=== PATIENT | female | born 1985 ===

== ENCOUNTER 2024-09-05 12:24 | Inpatient (IN) | payer OTHER ==
[~2024-09-05] VITALS: Ht 154.9 cm; Wt 75.4 kg
[2024-09-05 13:35] VITALS: BP 134/97
[2024-09-05] MEDS ORDERED: TRAZ100 PO (14:17)
[2024-09-05 14:25] VITALS: BP 134/97
[2024-09-05] MEDS ORDERED: Acetaminophen 325 MG TABLET PO PRN (14:25)
[2024-09-05] MEDS ORDERED: Melatonin 3 MG Tab PO PRN (14:25)
[2024-09-05] MEDS ORDERED: Polyethylene Glycol 3350 17 gm PO PRN (14:25)
[2024-09-05] MEDS ORDERED: Aluminum Hydroxide 320MG/5ML 473 ML PO PRN (14:25)
[2024-09-05] MEDS ORDERED: TraZODone HCl 50 MG Tab PO PRN (14:25)
[2024-09-05] MEDS ORDERED: Calcium Carbonate 500 MG Tab Chew PO PRN (14:30)
[2024-09-05] MEDS ORDERED: DiphenhydrAMINE HCl 50 MG/ML 1ML Vial IV PRN (14:30)
[2024-09-05] MEDS ORDERED: Haloperidol 5 MG Tab PO PRN (14:30)
[2024-09-05] MEDS ORDERED: FLU VACC TS2024-25(6MOS UP)/PF 45 MCG/0.5 ML SYRINGE IM SCH (14:30)
[2024-09-05] MEDS ORDERED: HydrOXYzine Pamoate 50 MG Cap PO PRN (14:30)
[2024-09-05] MEDS ORDERED: DiphenhydrAMINE HCl 50 MG Cap PO PRN (14:30)
[2024-09-05] MEDS ORDERED: Haloperidol Lactate Inj. 5 MG/ML Injection IM PRN (14:30)
[2024-09-05] MEDS ORDERED: Ibuprofen 600 MG Tab PO PRN (14:35)
[2024-09-05] MEDS ORDERED: OLANZapine ODT 10 MG Tab MM PRN (14:35)
[2024-09-05] MEDS ORDERED: LORazepam 2 MG Tab PO PRN (14:35)
[2024-09-05] MEDS ORDERED: Ondansetron 4 MG SoluTab MM PRN (14:35)
[2024-09-05] MEDS ORDERED: LORazepam 2 MG/ML 1ML Injection IM PRN (14:35)
[2024-09-05] MEDS ORDERED: Nicotine 21 MG PATCH TOP ONE (15:05)
--- NOTE | 2024-09-05 16:41 | NUR ---
ADMISSION NOTE PT ADMITTED FROM [facility] FOR SI/SOMATIC ISSUES. DURING ASSESSMENT THE PT HAD A DIFFICULT TIME VERBALIZING WHAT BROUGHT HER TO THE ED. PT DENIES SI AT ANY TIME BUT SAYS THAT SHE OVERALL HAS NOT FELT WELL AND HAS BEEN ANXIOUS/OVERWHELMED. PT VISITED THE ED IN [place] 5 TIMES PRIOR TO BEING ADMITTED. PT WAS TEARFUL DURING THE INTERVIEW AND WAS UNSURE OF MOST QUESTIONS. SHE IS UNSURE WHY SHE FEELS THE WAY SHE DOES AND SAYS THAT SHE IS "SCARED". SHE ENDORSED ABD PAIN BUT DID JUST START HER MENSES. PT ALSO ENDORSES GENERALIZED PAIN, CHILLS, AND OVERALL FEELINGS OF ANXIETY. THIS RN ASKED PT IF SHE USES ANY SUBSTANCES AND PT DENIED ANY CURRENT SUBSTANCE USE. PT UNSURE OF HOME MEDICATIONS AND HOME PHARMACY TO FAX MED LIST SO MEDICATION RECONCILATION CAN BE COMPLETED. PT ORIENTED THE UNIT AND HAS BEEN OUT ON THE UNIT SINCE SHE HAS ARRIVED. PT CONTINUES TO ENDORSE PAIN AND HAS BEEN TREATED WITH PRN'S X2 FOR PAIN.
[2024-09-05] MEDS ORDERED: Menthol 1 EA Adhesive Patch TOP PRN (20:50)
[2024-09-05] MEDS ORDERED: Methyl Salicylate/Menth/Camph 57 GM TUBE TOP PRN (21:15)
[2024-09-05 21:18] VITALS: BP 120/78
[2024-09-06] MEDS ORDERED: Multivitamins 1 Tab PO SCH (09:00)
[2024-09-06] MEDS ORDERED: Nicotine 21 MG PATCH TOP SCH (09:00)
[2024-09-06] MEDS ORDERED: METPHE10 PO (10:45)
[2024-09-06] MEDS ORDERED: ESTARYLLA 0.251 EACH PO (10:46)
[2024-09-06] MEDS ORDERED: Bentyl20 MG PO (10:47)
[2024-09-06] MEDS ORDERED: ONDA4ODT MM (10:48)
[2024-09-06 12:22] VITALS: BP 129/75
--- NOTE | 2024-09-06 14:03 | NUR ---
SEE HARD CHART FOR DOWNTIME CHARTING BETWEEN [phone].
[2024-09-06] MEDS ORDERED: Dicyclomine HCl 20 MG Tab PO SCH (18:00)
--- NOTE | 2024-09-06 18:34 | NUR ---
SHIFT SUMMARY PT A/O X4; PLEASANT AND COOPERATIVE WITH CARE. PT REPORTS THAT SHE DOESN'T "FEEL RIGHT" BUT IS UNABLE TO ELABORATE. SHE REPORTS GENERALIZED ACHES/PAINS T/O HER BODY BUT ALSO REPORTS SHARPER PAINS IN THE HIP/ABD REGION. PT ALSO C/O SOME CONSTIPATION BUT DOES NOT WANT TO TRY MIRALAX AT THIS TIME. PT STARTED ON MEDICATION FOR IBS. SHE DENIES SI, HI, OR ANY HALLUCINATIONS. PT CONTACTED BY [facility] REGARDING CHILDREN AND SENT FAX. PT DOES NOT WANT [facility] TO DISCLOSE INFORMATION TO [facility] BUT WILL GIVEN THEM A CALL IF TOLD THAT THEY TRIED TO CONTACT.
[2024-09-07 00:07] VITALS: BP 118/73
--- NOTE | 2024-09-07 05:56 | NUR ---
Patient is A&OX4 very flat affect with many different c/o aches and pains generalized all over. No SI,HI or AVH noted on assessment. Patient given Ibuprophen or tylenol approximately every 6 hours. She is toleerating Bentyl for her stomach complaints without difficulty. Will continue close monitoring every 15 minutes for safety and comfort
[2024-09-07 08:35] VITALS: BP 111/66
[2024-09-07] MEDS ORDERED: NORGESTIMATE PO SCH (09:00)
[2024-09-07] MEDS ORDERED: ETHINYL ESTRADIOL PO SCH (09:00)
--- NOTE | 2024-09-07 09:06 | NUR ---
PATIENT UP TO BREAKFAST, THEN WENT BACK TO BED "I'M JUST TIRED", PATIENT ENCOURAGED TO ATTEND THE NEXT GROUP. PATIENT VERBALIZED THAT HER HIP PAIN 5/10 MEDICATED WITH IBUPROFEN.
[2024-09-07] MEDS ORDERED: DULoxetine HCL 20 MG Cap DR PO SCH (10:00)
--- NOTE | 2024-09-07 10:48 | NUR ---
PATIENT CONTINUES TO FEEL TIRED, TAKING SHORT NAPS BETWEEN GROUP ACTIVITY. CONTINUES TO DENY SI, HI, OR AVH. WHEN ENCOURAGED PATIENT IS ATTENDING GROUP.
--- NOTE | 2024-09-07 13:24 | NUR ---
PATIENT RECEIVED CALL FROM [facility]. 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 PATIENT ASKING ABOUT BEING ABLE TO GO HOME TOMORROW. EXPLAINED THAT SHE HAS STARTED ON A NEW MEDICATION AND THAT HER DISCHARGE PLAN WILL NEED TO BE WORKED OUT WITH HER DOCTOR, WHO WILL BE SEEING HER TOMORROW MORNING. PATIENT ALSO VERBALIZED THAT HER PSORIASIS IS STARTING TO FLAIR UP, PATIENT HAS A PATCHY DRY RED AREA TO HER LEFT EAR AND BACK OF HER HEAD. PATIENT UNABLE TO REMEMBER WHAT TYPE OF TREATMENT SHE HAS HAD IN THE PAST FOR HER PSORIASIS.
--- NOTE | 2024-09-07 14:08 | NUR ---
[facility] [place] [facility], PT LEFT A MESSAGE WITH THE DIRECTOR, AND WILL ATTEMPT TO CALL BACK TOMORROW.
--- NOTE | 2024-09-07 16:40 | NUR ---
PATIENT HAVING INCREASED ANXIETY AND RESTLESS AFTER SPEAKING WITH [employer]. MASS UP TO 7. PATIENT ABLE TO TALK TO HER FRIEND WHO IS WATCHING HER CHILDREN AND HER KIDS ON THE PHONE. PT VERBALIZED THAT HER ANXIETY IS MUCH BETTER MASS 3 WITH REEVALUATION. PATIENT VERBALIZED THAT SHE IS WANTING TO WAIT UNTIL 1900 WHEN SHE CAN HAVE HYDROXYZINE FOR ANXIETY
--- NOTE | 2024-09-07 17:09 | NUR ---
SUMMARY PATIENT A&O T/O DAY. COOPERATIVE WITH GOING TO GROUP ACTIVITIES T/O DAY. NO SI, HI, OR AVH. AFTER COMMUNICATING WITH [employer] PATIENT HAVING INCREASED ANXIETY AND QUESTIONING WHEN SHE CAN GO HOME. PATIENT VERBALIZED HAVING DECREASED ANXIETY AFTER TALKING TO HER CHILDREN AND HER FRIEND WHO IS WATCHING HER CHILDREN. PATIENT VERBALIZED THAT SHE IS NO LONGER HAVING DIFFICULTY WITH CONSTIPATION, YET CONTINUES TO HAVE HIP AND LOW BACK PAIN 3-01/24. MEDICATING FOR PAIN AND ANXIETY PER EMAR.
[2024-09-07 21:05] VITALS: BP 107/72
--- NOTE | 2024-09-08 04:55 | NUR ---
Patient is alert and oriented and pleasant and cooperative with both staff and peers. She spent the entire evening in the day room playing a bowling game with her peers. She has no SI,HI or AVH during her assessment. Still having chronic back pain, but abdomen is feeling much better since starting bentyl. Affect is less flat than the night previous. Sleep hours total 8 hours so far (she is still sleeping)
--- NOTE | 2024-09-08 10:45 | NUR ---
HOSPITAL DISCHARGE APPOINTMENT Patient has hospital discharge appointment on Friday, September 13, 2024 at 1550 with Marya Chandler MD at [facility] / [address] [place] [id number] / [phone] JUS entered appointment information in patient's discharge packet
--- NOTE | 2024-09-08 17:08 | NUR ---
SHIFT SUMMARY: PT ALERT, ORIENTED AND COOPERATIVE WITH CARE. COMPLIANT WITH MEDICATIONS. DENIES SI, HI AND AVH. C/O INCREASED ANXIETY AFTER BREAKFAST, MEDICATED WITH PRN PER EMAR. PT UP FOR GROUPS, ENGAGED IN UNIT [place]IE[place] AND ATTENDED MEALS. C/O HEADACHE DURING AFTERNOON GROUP AND MEDICATED WITH PRN PER EMAR.
[2024-09-08] MEDS ORDERED: DULoxetine HCL 20 MG Cap DR PO SCH (21:00)
[2024-09-08 22:31] VITALS: BP 119/73
--- NOTE | 2024-09-09 04:15 | NUR ---
PATIENT WAS UP IN THE GROUP ROOM AT THE BEGINNING OF THE SHIFT, WATCHING TELEVISION WITH STAFF AND PEERS. SHE JOINED THE GROUP FOR SNACK AND FOLLOW UP AT 2000 IN THE DINING AREA. SHE WAS PLEASANT AND COOPERATIVE WITH CARES. SHE WAS ABLE TO MAKE NEEDS KNOWN. SHE WAS COMPLIANT WITH MEDICATION ADMINISTRATION. SHE HAD NO S/SX SUICIDAL IDEATION OR SELF HARM THIS SHIFT. SHE CONTINUED WATCHING TELEVISION AFTER SNACK TIME, AND THEN WENT TO BED. SHE WAS NOTED TO BE RESTING QUIETLY WITH EYES CLOSED AND RESPIRATIONS CONFIRMED FOR THE REMAINDER OF THE SHIFT. CONTINUING TO MONITOR FOR SAFETY WITH Q15 MINUTE CHECKS.
[2024-09-09 08:06] VITALS: BP 119/72
[2024-09-09] MEDS ORDERED: Cymbalta20 MG PO (11:14)
[2024-09-09] MEDS ORDERED: HYDPAM50 PO (11:16)
--- NOTE | 2024-09-09 13:56 | NUR ---
DISCHARGE NOTE: PT DISCHARGE TO HOME AT 1245 VIA MEDICAL TRANSPORT. GIVEN DISCHARGE INSTRUCTIONS, EDUCATION, PRESCRIPITIONS CALLED TO [facility]. SPOKE WITH PHARMACIST FRANCIA. [phone]. BELONGINGS RETURNED AT TIME OF DISCHARGE. PT A/O X4. AMBULATE OUT TO [facility] WITHOUT DIFFICULTY VERBAL RETURN OF UNDERSTANDING ON INSTRUCTIONS.
== END 2024-09-09 12:45 | disposition home or self-care (01) | DRG 882 ==
LOC: BHU 12:24 → EDSEX 13:30 → BHU 13:30
PROVIDERS: ADMIT Psychiatry & Neurology Psychiatry
DX: F43.23 Adjustment disorder with mixed anxiety and depressed mood (principal); R45.851 Suicidal ideations; F45.9 Somatoform disorder, unspecified; F31.9 Bipolar disorder, unspecified; Z88.5 Allergy status to narcotic agent; Z88.8 Allergy status to other drugs, medicaments and biological substances; Z79.899 Other long term (current) drug therapy
CPT/HCPCS: A9270